=== PATIENT | male | born 1955 | race Caucasian/White ===

== ENCOUNTER → 2020-04-20 15:12 | Outpatient (CLI) | payer OTHER, SELFPAY ==
--- NOTE | ~2020-04-20 | XR_ITS ---
EXAMINATION:XR_[id number]_CR DATE: 04/20/2020 15:43 INDICATION: Neck pain TECHNIQUE: AP, lateral, lateral swimmers and odontoid views of the cervical spine are provided. COMPARISON: 05/28/2009 FINDINGS: There are 3 mm of retrolisthesis of C3 on C4. There are 2 mm of retrolisthesis of C5 on C6. There is moderate loss of intervertebral disc space height at C3-4, C5-6, and C6-7. The vertebral aide dy heights are maintained. The prevertebral soft tissues are normal. There is moderate multilevel fac et and uncovertebral joint osteoarthritis. Chronic heterotopic ossification is seen in the dorsal sof t tissues of the lower cervical spine. The odontoid is intact. No fracture is identified. Prevertebra l soft tissues are normal. IMPRESSION: 1. Moderate to severe cervical spondylosis with interval worsening. Reviewed, dictated and finalized at location A.
== END ==
PROVIDERS: PCP Family Medicine; Visit Provider Physician Assistant
DX: M54.2 Cervicalgia (principal); R51.9 Headache, unspecified; M47.812 Spondylosis without myelopathy or radiculopathy, cervical region
CPT/HCPCS: 72040

== ENCOUNTER 2020-06-20 00:35 | Outpatient (CLI) | payer OTHER, SELFPAY ==
[2020-06-20 19:13] LABS: SARS-CoV-2 RNA PCR Negative
== END 2020-06-20 00:36 | disposition home or self-care (01) ==
LOC: ANHCOVIDDT 00:35
PROVIDERS: PCP Family Medicine; Visit Provider Internal Medicine Gastroenterology
DX: Z01.818 Encounter for other preprocedural examination (principal); Z20.828 Contact with and (suspected) exposure to other viral communicable diseases
CPT/HCPCS: 87635; C9803; U0003

== ENCOUNTER 2020-06-24 00:17 | Day surgery (SDC) | payer OTHER, SELFPAY ==
[2020-06-15 15:10] VITALS: BMI 22.7
[2020-06-24 07:22] VITALS: BP 139/102; PULSE 70; RESP 16; TEMP 36.8; O2SAT 97
[2020-06-24] MEDS: LACTATED RINGERS 1,000 ML 150 ML IV CONT (07:33)
--- NOTE | 2020-06-24 08:20 | WPDGICN ---
Assessment and Plan Assessment and plan (1) Family history of colon cancer in mother: Code(s): Z80.0 - Family history of malignant neoplasm of digestive organs Status: Acute Assessment and Plan: Plan is for surveillance colonoscopy now and should consider this at 5 year intervals in the future. GI Consult Note Consult date/time: 06/24/20 08:20 HPI: Heath Aceves is a 65 year old male Presents for screening colonoscopy. Family history is significant that his mother had colon cancer. Patient states that his own weight appetite bowel movements are normal. He denies abdominal pain. He has had no bleeding. His last colonoscopy was 5 years ago. [facility] Past Medical History Medical History (Updated 06/24/20 @ 08:22 by Pradip Traylor MD) Atrial flutter Chronic back pain greater than 3 months duration Discomfort of right hip Eczema History of cardioversion Hyperlipidemia Impacted cerumen of left ear Lumbar back pain with radiculopathy affecting right lower extremity Surgical History Surgical History H/O hernia repair History of laminectomy History of tonsillectomy Family History Family History Other Family history of malignant neoplasm Social History Social History Smoking status: Never smoker Second hand tobacco smoke exposure: No Alcohol intake: current Drinks per week: 12 Alcohol use details: couple glasses of wine a night Substance use: never Substance use type: does not use Living arrangements: with family Gender identity (if verbalized by the patient): Male Spiritual care concerns: No Agree to blood products: Yes Meds Home Medications and Allergies Home Medications Medication Instructions Recorded Confirmed Type flecainide 100 mg tablet 100 mg PO Q12H 08/05/19 06/24/20 History loratadine 10 mg disintegrating 10 mg PO DAILY 09/05/19 06/24/20 History tablet simvastatin 10 mg tablet 10 mg PO QPM #180 tablet 01/07/20 06/24/20 Rx acetaminophen 500 mg tablet 500 mg PO Q6H PRN 01/21/20 06/24/20 History cyclobenzaprine 10 mg tablet 10 mg PO TID PRN #30 tablet 02/26/20 06/24/20 Rx meloxicam 7.5 mg PO DAILY PRN 06/15/20 06/24/20 History triamcinolone acetonide 1 applic TOPICAL PRN 06/15/20 06/24/20 History Allergies Allergy/AdvReac Type Severity Reaction Status Date / Time No Known Allergies Allergy Unknown Verified 06/24/20 07:16 Vital Signs Vital Signs - 24 hr 06/24/20 07:22 Temperature 98.3 F Pulse Rate 70 Respiratory Rate 16 Blood Pressure 139/102 H Pulse Oximetry 97 Exam Narrative: Exam Narrative: Physical exam reveals patient to be alert. Vital signs stable. HEENT exam unremarkable. Patient is anicteric. Lungs are clear to auscultation and percussion. Heart is without murmur or extra sounds. Abdominal exam bowel sounds are present soft nontender with no organomegaly. Digital external rectal exam normal.
[2020-06-24 08:45] VITALS: BP 120/72; PULSE 59; RESP 21; O2SAT 99
[2020-06-24 08:55] VITALS: BP 125/70; PULSE 65; RESP 15; O2SAT 99
[2020-06-24 09:05] VITALS: BP 140/81; PULSE 62; RESP 19; O2SAT 99
== END 2020-06-24 09:19 | disposition home or self-care (01) ==
PROVIDERS: PCP Family Medicine; Visit Provider Internal Medicine Gastroenterology
PROC: 0DJD8ZZ Inspection of Lower Intestinal Tract, Via Natural or Artificial Opening Endoscopic (ICD-10-PCS; CPT 45378; principal; 2020-06-24 08:30)
DX: Z12.11 Encounter for screening for malignant neoplasm of colon (principal); K57.30 Diverticulosis of large intestine without perforation or abscess without bleeding; K64.8 Other hemorrhoids; Z80.0 Family history of malignant neoplasm of digestive organs; I48.92 Unspecified atrial flutter; E78.5 Hyperlipidemia, unspecified
CPT/HCPCS: 45378; J2704; J7120

== ENCOUNTER 2020-09-24 11:00 | Outpatient (CLI) | payer OTHER, SELFPAY | END 2020-09-24 11:01 | disposition home or self-care (01) | LOC: ANHCOVIDVC 11:00 | PROVIDERS: PCP Family Medicine | DX: Z23 Encounter for immunization (principal) | CPT/HCPCS: 0001A; 91300 ==

== ENCOUNTER 2020-10-15 11:00 | Outpatient (CLI) | payer OTHER, SELFPAY | END 2020-10-15 11:01 | disposition home or self-care (01) | LOC: ANHCOVIDVC 11:00 | PROVIDERS: PCP Family Medicine | DX: Z23 Encounter for immunization (principal) | CPT/HCPCS: 0002A; 91300 ==

== ENCOUNTER → 2022-03-30 10:44 | Outpatient (CLI) | payer MEDICARE, SELFPAY ==
--- NOTE | ~2022-03-30 | MR_ITS ---
EXAMINATION: MR hip RT wo con DATE: 03/30/2022 11:30 INDICATION: Right hip pain TECHNIQUE: Magnetic resonance imaging (MRI) of the right hip was performed without intravenous contr ast. Sequences included full-field axial PD-weighted FS FSE and T1-weighted FSE, coronal of the pelvi s with PD-weighted FS FSE, T2-weighted FSE and T1-weighted FSE, small field of view of the right hip with axial PD-weighted FS FSE, sagittal PD-weighted FS FSE, coronal PD-weighted FS FSE and coronal T2 weighted FSE. Additional radial T1-weighted FGR oriented orthogonal to the acetabular rim were obt ained for evaluation of the labrum. COMPARISON: 10/28/1969 FINDINGS: Bones/labrum/cartilage: Mild lower lumbar levocurvature with severe spondylosis with associated right-sided fibrovascular deg enerative endplate changes at L4-L5. There is advanced osteoarthritis of the right hip with severe hernandez perior and posterosuperior joint space narrowing. There is prominent marrow edema underlying the ceph alad aspect of the right humeral head where there is an irregular cortical contour. It is unclear whe ther this represents secondary degenerative changes related to the osteoarthritis of the asymmetrical ly severe osteoarthritis secondary to either chronic collapse of the articular cortex resulting from either subarticular insufficiency fracture or osteonecrosis. Would favor as asymmetric joint space na rrowing was already present at the time of radiographs from 10/28/2016 at which time the humeral head appeared normal with smooth spherical articular cortex. There is also mild subarticular edema-like si gnal change along the superomedial to anterosuperior aspect of the right acetabulum and cystlike toledo ges at the posterior medial acetabulum. Marrow signal is otherwise normal. There is degenerative tear ing of the anterosuperior right acetabular labrum. Marginal osteophytes in the right acetabulum repla cing significant portion of the labral tissue at the superolateral to posterior superior right acetab ular labrum. On the left hip joint space is relatively preserved. Additional marginal osteophytes als o replacing labral tissue along the rim of the left acetabulum. Fluid: Symmetric physiologic amount of fluid within both hip joints. Soft tissues: Normal and symmetric muscle bulk and signal in the pelvis and visualized proximal thighs. The iliopso as, gluteal and proximal hamstring tendons are normal. There are few sigmoid diverticula without bertha cent inflammatory change to suggest diverticulitis. Limited evaluation of visceral organs of the pelv is is unremarkable. No pathologically enlarged pelvic/inguinal lymphadenopathy. IMPRESSION: 1. Severe right hip osteoarthritis with chronic labral degeneration. 2. Mild lower lumbar levocurvature with severe spondylosis. Reviewed, dictated and finalized at location A.
== END ==
PROVIDERS: PCP Family Medicine; Visit Provider Nurse Practitioner
DX: M16.11 Unilateral primary osteoarthritis, right hip (principal); M47.896 Other spondylosis, lumbar region
CPT/HCPCS: 73721